=== PATIENT | female | born 1995 | race African-American/Black ===

== ENCOUNTER 2018-09-04 21:20 | Emergency (ER) | payer SELFPAY ==
[~2018-09-04] VITALS: Ht 160 cm; Wt 73.0 kg
[2018-09-04] MEDS ORDERED: KETOROLAC 60MG/2ML VIAL IM ONE (22:45)
[2018-09-04] MEDS ORDERED: HYDROCODONE/ACETAMINOPHEN 5/325MG TABLET PO ONE (23:15)
[2018-09-05 01:36] VITALS: BP 115/74
== END 2018-09-05 01:43 | disposition home or self-care (01) ==
LOC: ER 21:20
DX: S83.005A Unspecified dislocation of left patella, initial encounter (principal); W09.8XXA Fall on or from other playground equipment, initial encounter; Y93.39 Activity, other involving climbing, rappelling and jumping off; Y92.89 Other specified places as the place of occurrence of the external cause; Y99.8 Other external cause status
CPT/HCPCS: 29505; 73562; 96372; 99283; J1885; L1830